=== PATIENT | male | born 1965 | race Caucasian/White ===

== ENCOUNTER 2017-07-25 22:23 | Emergency (ER) | payer OTHER, BC ==
[2017-07-25 22:39] VITALS: BP 147/76; PULSE 85; TEMP 98.5; BMI 36.6
--- NOTE | 2017-07-26 00:08 | PDOC ---
History of Present Illness - General Chief Complaint: Pain Stated Complaint: LEFT ANKLE PAIN SLIPPED ON ICE AT WORK Time Seen by Provider: 07/25/17 22:37 Past History - Travel Traveled outside of the country in the last 30 days: No Close contact w/someone who was outside of country & ill: No - Past Medical History Allergies/Adverse Reactions: Allergies Allergy/AdvReac Type Severity Reaction Status Date / Time No Known Drug Allergies Allergy Verified 01/02/15 09:07 Home Medications: Ambulatory Orders Losartan Potassium [Cozaar -] 100 mg PO DAILY 03/31/13 Ibuprofen [Motrin -] 600 mg PO TID #30 tablet 07/26/17 Anemia: Yes (IRON DEFICIENCY) Asthma: No Cancer: No Cardiac Disorders: No CVA: No COPD: No CHF: No Dementia: No Diabetes: No GI Disorders: Yes (DIVERTICULOSIS) Disorders: Yes (KIDNEY STONES) HTN: Yes Hypercholesterolemia: No Kidney Stones: Yes Liver Disease: Yes (FATTY LIVER) Seizures: No Thyroid Disease: No - Surgical History Abdominal Surgery: Yes (HERNIA REPAIR) Appendectomy: No Cardiac Surgery: No Cholecystectomy: No Lung Surgery: No Neurologic Surgery: No Orthopedic Surgery: No - Suicide/Smoking/Psychosocial Hx Smoking Status: No Smoking History: Never smoked Have you smoked in the past 12 months: No Number of Cigarettes Smoked Daily: 0 Information on smoking cessation initiated: No Hx Alcohol Use: No Drug/Substance Use Hx: No Substance Use Type: None Hx Substance Use Treatment: No Review of Systems - Review of Systems Able to Perform ROS?: No Is the patient limited Malay proficient: No Constitutional: No: Symptoms Reported, See HPI, Chills, Diaphoresis, Fever, Loss of Appetite, Malaise, Night Sweats, Weakness, Weight Stable, Unintentional Wgt. Loss, Unexplained wgt Loss, Other HEENTM: No: See HPI, Eye Pain, Blurred Vision, Tearing, Recent change in vision , Double Vision, Cataracts, Ear Pain, Ocular Prothesis, Ear Discharge, Nose Pain , Nose Congestion, Tinnitus, Nose Bleeding, Hearing Loss, Throat Pain, Throat Swelling, Mouth Pain, Dental Problems, Difficulty Swallowing, Mouth Swelling, Other Respiratory: No: Symptoms reported, See HPI, Cough, Orthopnea, Shortness of Breath, SOB with Exertion, SOB at Rest, Stridor, Wheezing, Productive cough, Hemoptysis, Other Cardiac (ROS): No: Symptoms Reported, See HPI, Chest Pain, Edema, Irregular Heart Rate, Lightheadedness, Palpitations, Syncope, Chest Tightness, Other ABD/GI: No: Symptoms Reported, See HPI, Abdominal Distended, Abd. Pain w/ defecation, Blood Streaked Bowels, Constipated, Diarrhea, Difficulty Swallowing , Nausea, Poor Appetite, Poor Fluid Intake, Rectal Bleeding, Vomiting, Indigestion, Abdominal cramping, Tarry Stools, Other Musculoskeletal: Yes: Joint Swelling, Joint Stiffness. No: Symptoms Reported, See HPI, Back Pain, Gout, Joint Pain, Muscle Pain, Muscle Weakness, Neck Pain, Other Integumentary: No: Symptoms Reported, See HPI, Bruising, Change in Color, Change in Hair/Nails, Dryness, Erythema, Flushing, Lesions, Lumps, Pallor, Pruritus, Rash, Sweating, Other Neurological: No: Symptoms reported, See HPI, Headache, Numbness, Paresthesia, Pre-Existing Deficit, Seizure, Tingling, Tremors, Weakness, Unsteady Gait, Ataxia, Dizziness, Other *Physical Exam - Vital Signs Last Vital Signs Temp Pulse Resp BP Pulse Ox 98.5 F 85 16 147/76 99 07/25/17 22:25 07/25/17 22:25 07/25/17 22:25 07/25/17 22:25 07/25/17 22:25 - Physical Exam General Appearance: Yes: Nourished, Appropriately Dressed. No: Apparent Distress HEENT: positive: EOMI, BENJAMÍN, Normal ENT Inspection, TMs Normal, Pharynx Normal Neck: positive: Normal Thyroid, Supple Respiratory/Chest: positive: Chest Tender, Lungs Clear, Normal Breath Sounds Cardiovascular: positive: Regular Rhythm, Regular Rate, S1, S2 Gastrointestinal/Abdominal: positive: Normal Bowel Sounds, Flat. negative: Tender Musculoskeletal: positive: Normal Inspection, CVA Tenderness Extremity: positive: Pedal Edema, Swelling, Inflammation (Pt doesnt have medial or lateral malleolar tenderness. He has pain at the dorsal aspect of the foot.) Integumentary: positive: Normal Color, Dry, Warm Neurologic: positive: stand grinder II-XII NML intact, Fully Oriented, Alert, Normal Mood/ Affect, Normal Response, Motor Strength 5/5 ED Treatment Course - RADIOLOGY Radiology Studies Ordered: Category Date Time Status ANKLE & FOOT-LEFT* [RAD] Stat Radiology 07/25/17 22:38 Taken Medical Decision Making - Medical Decision Making 07/26/17 00:08 Patient Name: CORRY GARCIA THIS IS A PRELIMINARY REPORT FROM IMAGING PUBLISHING DIRECTOR DATE OF SERVICE: 2017-07-25 22:47:43 IMAGES: 7 EXAM: XR ANKLE / XR FOOT HISTORY: Status post trauma. COMPARISON: None. FINDINGS: X-ray left ankle and foot 3 projections each Left ankle: There is no evidence of fracture or dislocation. Osteodegenerative changes are identified, with osteophyte formation present at the distal tibia and fibula. A large plantar calcaneal bone spur is identified. A small posterior calcaneal bone spur is noted. No other significant osseous abnormality is seen. Soft tissue swelling is noted diffusely about the ankle. Left foot: There is no evidence of fracture or dislocation. Osteodegenerative changes are noted involving the first metatarsophalangeal joint, with osteophyte formation present. A large plantar calcaneal bone spur is noted. A small posterior calcaneal bone spur is identified. No other significant osseous or surrounding soft tissue abnormality is appreciated. IMPRESSION: No fracture dislocation. Osteodegenerative changes, as described above. Calcaneal bone spurs, as described above. 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 He slid on a patch of ice that was hidden by a car that he was walking around in an attempt to deliver mail. Pt has left ankle pain and swelling. He is unable to walk properly. Pt states that he took tylenol and continued his route for 6 hrs. Came to the ER after completing his route. *DC/Admit/Observation/Transfer Diagnosis at time of Disposition: Ankle sprain - Discharge Dispostion Disposition: HOME Condition at time of disposition: Stable Admit: No - Prescriptions Prescriptions: Ibuprofen [Motrin -] 600 mg PO TID #30 tablet - Referrals Referrals: Eran Gomez MD [Staff Physician] - - Patient Instructions Printed Discharge Instructions: DI for Ankle Sprain - Post Discharge Activity Forms/Work/School Notes: Back to Work
[2017-07-26] MEDS ORDERED: IBUPROFEN 600 MG TABLET (FP) PO ONE ×2 (00:21→00:24)
== END 2017-07-26 00:20 | disposition home or self-care (01) ==
LOC: FER 22:23
DX: S93.402A Sprain of unspecified ligament of left ankle, initial encounter (principal); W00.0XXA Fall on same level due to ice and snow, initial encounter; Y93.89 Activity, other specified; Y92.410 Unspecified street and highway as the place of occurrence of the external cause; Y99.0 Civilian activity done for income or pay; D50.9 Iron deficiency anemia, unspecified; K76.0 Fatty (change of) liver, not elsewhere classified; Z87.442 Personal history of urinary calculi
CPT/HCPCS: 73610-TC-LT; 73630-TC-LT; 99282-25